=== PATIENT | male | born 1995 | race Caucasian/White ===

== ENCOUNTER 2016-09-23 18:00 | Inpatient (IN) | payer MEDICAID ==
[~2016-09-23] VITALS: Ht 185.4 cm; Wt 97.6 kg
--- NOTE | ~2016-09-23 | ECH ---
Transthoracic Echocardiography Report (TTE) Demographics Patient Name TONYA KIRAN Date of Study 09/26/2016 Patient Number [id number] Visit Number [id number] Date of 1995 Room Number 426 Accession Number [id number] Gender Male Age 21 year(s) Referring Nhi Garcia MD Auto Phone Installer Marsha Hill [facility] Physician Raul Richards MD Physician Interpreting Nhi Garcia [place] Upholsterer Physician Supervising Ordering Physician Raul Richards MD, MD/P Nurse Stress Relationship Mgr Conclusions Summary Technically adequate exam. The estimated left ventricular ejection fraction is 45-50%. The left ventricle is at upper limits of normal size . Mild to moderate left ventricular hypertrophy. Diastolic function indeterminate due to patient's arrhythmia. 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 The left atrium is severely dilated by LA volume index measurement. There is no evidence of patent foramen ovale or atrial septal defect by color Doppler. The right atrium is mildly dilated. Prominent Chiari network seen in the right atrium. Trivial posterior pericardial effusion. Procedure Type of Study TTE procedure:Echo Complete SF. Procedure Date Date: 09/26/2016 Start: 11:33 AM Technical Quality: Good visualization Indications:Tachycardia, Hypertension and Shortness of breath. Appropriate Use Criteria: 9 Height: 73 inches Weight: 228 pounds BSA: 2.28 m Rhythm: Sinus tachycardia HR: 109 bpm BP: 173/98 mmHg M-Mode/2D Measurements LV Diastolic Dimension: 5.85 cm LV Systolic Dimension: 4.56 cm LV Septum Diastolic: 1.2 cm LV PW Diastolic: 1.5 cm AO Root Dimension: 3.05 cm Cardiac Output: 7.57 l/min LA Dimension: 4.23 cm Cardiac Index: 3.32 l/min*m RV Diastolic Dimension: 3.26 cm LA volume index: 63 ml/m LVOT: 2.35 cm LVOT VTI: 16.02 cm RV Base: 4.18 cm LV Stroke volume: 69.45 ml RV Mid: 2.45 cm LV Stroke volume index: 30.46 ml/m RV Length: 8.22 cm Doppler Measurements AV Mean Gradient: 3.82 mmHg MV Peak E-Wave: 1.04 m/s LVOT Peak Velocity: 1.12 m/s AV Area (Continuity):4.07 cm PV Peak Velocity: 1.19 m/s PV Peak Gradient: 5.71 mmHg RA Area: 18.47 cm Findings Left Ventricle The left ventricle is at upper limits of normal size . Mild to moderate left ventricular hypertrophy. Diastolic function indeterminate due to patient's arrhythmia. 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 Right Ventricle Normal right ventricle structure and function. Left Atrium The left atrium is severely dilated by LA volume index measurement. There is no evidence of patent foramen ovale or atrial septal defect by color Doppler. Right Atrium The right atrium is mildly dilated. Prominent Chiari network seen in the right atrium. Mitral Valve Normal mitral valve structure and function. Redundant mitral valve chordae . Aortic Valve Normal aortic valve structure and function. Tricuspid Valve Normal tricuspid valve structure and function. Pulmonic Valve Normal pulmonic valve structure and function. Pericardial Effusion Trivial posterior pericardial effusion. Miscellaneous Visualized portions of the aortic root and ascending aorta appear normal in size. Pleural Effusion No evidence of pleural effusion. Contractility Score LV regional wall motion:(0-Non visualized 1-Normal 2-Hypokinesis 3-Akinesis 4-Dyskinesis 5-Aneurysm) Signature
--- NOTE | ~2016-09-23 | ECH ---
Transesophageal Echocardiography Report (ROSANNE) Demographics Patient Name TONYA KIRAN Date of Study 09/28/2016 Patient Number [id number] Visit Number [id number] Date of 1995 Room Number 426 Accession Number [id number] Gender Male Age 21 year(s) Referring Nhi Garcia MD Fitting Supervisor Marsha Hill [facility] Physician Raul Richards MD Physician Interpreting Nhi Garcia Pathology Transcriptionist Physician MD Supervising Ordering Physician Nhi Garcia MD/CRYSTAL [place] Nurse Pedrito Mendez Stress Movement Education Specialist The procedure was explained in detail to the patient. Risks, complications and alternative treatments were reviewed. Written consent was obtained. Conclusions Summary The estimated left ventricular ejection fraction is 55%. Normal aortic valve structure and function. 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 No aortic regurgitation noted. Small global pericardial effusion. Procedure Type of Study ROSANNE procedure:ROSANNE SF. Procedure Date Date: 09/28/2016 Start: 11:23 AM Technical Quality: Adequate visualization Additional Indications:evaluate aorta/possible VSD Appropriate Use Criteria: 9 Height: 72 inches Weight: 228 pounds BSA: 2.25 m Rhythm: Sinus tachycardia HR: 119 bpm BP: 158/96 mmHg Procedure Informed Consent Procedure consent form obtained. - See IV sedation record Findings Left Atrium There is no evidence of thrombus in the left atrium or the left atrial appendage. Mitral Valve Normal mitral valve structure and function. No mitral regurgitation by color Doppler. Aortic Valve Normal aortic valve structure and function. 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 No regurgitation noted. Tricuspid Valve Normal appearing tricuspid valve. No tricuspid regurgitation by color Doppler. Pulmonic Valve No evidence of SBE Pericardial Effusion Small global pericardial effusion. Miscellaneous No plaque seen in the thoracic aorta. Signature
--- NOTE | ~2016-09-23 | WND ---
ADMIT: 09/23/2016 RM/LOC: 426 [facility] MR#: [id number] [address] [address] MAGNO TONYA HART [address] [place] [address] Wound Care Clinic SEX: M AGE: 21 : 1995 DATE OF VISIT: 09/26/2016 TIME IN: 10:00. TIME OUT: 10:50. REASON FOR VISIT: Diagnosis of surgical wound to left groin. HISTORY OF PRESENT ILLNESS: Bjorn is a 21-year-old male, who is seen today per the request of Dr. Mckeon for possible wound VAC to a surgical site in the left groin. Bjorn was admitted to [facility] on September 23, 2016 with pneumonia. In addition, he had a wound in his left groin that he states has began 2 years ago. He thought it was an ingrown hair and was treated initially for infection. After resolution of that, the wound grew back and was the size of a softball. Bjorn was unemployed and uninsured, and his friend told him he thought that it was cancer and gave him a homeopathic black cream to apply to the lump. That black ointment made the skin necrose and all the underlying tissue was visible. He did report less pain after the wound opened up than it was 3 months ago when he began the ointment. PAST MEDICAL HISTORY: Denies chronic illnesses. CURRENT MEDICATIONS: At home, he is on no medications. He is on antibiotics here for his pneumonia and has recently been consulted. A consult has been placed for Dr. Castillo, Infectious Disease doctor to start antibiotics per the wound culture that was obtained during this visit in the hospital. ALLERGIES: No known medication allergies. FAMILY HISTORY: Noncontributory. REVIEW OF SYSTEMS: Bjorn did report fever and chills prior to admission. He states today is the first day that he thinks he is feeling better. He denies nausea; however, he reports that he had an emesis last night. He is coughing up yellow sputum. Moderate amount. He does report some shortness of breath. He denies any complaints of pain to the wound bed currently. SOCIAL HISTORY: Bjorn is 21 years old and does not have his own home, but describes bouncing from couch to couch. He is currently unemployed and has no form of insurance or income. Bjorn grew up with 12 siblings. He was home schooled. He did not graduate from high school. His parents milk cows for living, and according to Bjorn, they do not have insurance either. PHYSICAL EXAMINATION: VITAL SIGNS: Blood pressure 173/98, pulse ox 91%, pulse 108, temperature 98.1, and respirations 19. GENERAL: An alert and oriented 21-year-old, who is examined in his bed in his room in [facility]. EXTREMITIES: Assessment of his left groin area reveals a gauze dressing that is saturated with serosanguineous exudate. Upon removal, it is noted that the wound bed measures 5 cm in length x 8.8 cm in width, 6 cm long x 10 cm wide x ADMIT: 09/23/2016 RM/LOC: [address] [place] [address] MR#: [id number] [address] [place] [id number] TONYA KIRAN [address] [place] [address] [facility] Care Clinic SEX: M AGE: 21 : 1995 5 cm deep measured at 1 o'clock. Wound bed is 100%. [place] freshly debrided tissue. No periwound erythema is noted. No odor is noted. ASSESSMENT: Status post debridement of necrotizing soft tissue infection of the left groin of Wound that measured 10 cm in width x 6 cm in length x 5 cm in depth. PLAN: We will continue to use saline moistened gauze lightly packed into the wound bed and then an ABD cover dressing change twice daily. I have had Bjorn write the letter stating that he has no job, no income, and no insurance applying for prasanna wound VAC. We will place the order for the wound VAC, and follow up when approval is met. Bjorn is amenable to plan of care. Judi Suero APRN/ [place] JOB #: [id number] CC: Alejo Carter, Attending Physician Alejo Carter, Family Physician
--- NOTE | 2016-09-25 20:44 | OR ---
ADMIT: 09/23/2016 RM/LOC: 426 [facility] MR#: [id number] [facility] [id number] [address] [address] TONYA KIRAN [address] [place] [id number] Operative/Delivery Room Report SEX: M AGE: 21 : 1995 SURGERY DATE: 09/24/2016 SURGEON: Caesar Mckeon MD PREOPERATIVE DIAGNOSIS: Necrotizing soft tissue infection of the left groin. POSTOPERATIVE DIAGNOSIS: Necrotizing soft tissue infection of the left groin. PROCEDURE: Debridement of necrotizing soft tissue infection of the left groin of wound measuring 10 cm x 6 cm x 5 cm deep. ANESTHESIA: General endotracheal. ESTIMATED BLOOD LOSS: 50 mL. DESCRIPTION OF PROCEDURE: The patient was taken to the operating room and placed supine on the operating room table. General anesthesia was established. The left groin was prepped and draped in the standard surgical fashion. The necrotic tissue around all margins of the wound including an area medially up to the base of the scrotum was debrided sharply. The necrotic tissue was sent for tissue culture. The remaining viable tissue was also biopsied with sharp excision of portions of what appeared to be lymph node extending down into the femoral canal. The wound was then Pulsavac irrigated with saline until no residual infection was found. All margins were viable upon completion. The bridge of tissue between the wounds was debrided to allow dressing placement into a one large wound. This was then packed with Betadine-soaked Kerlix. Local anesthetic was injected at the margins of the wound and a dressing was placed. Sponge, needle, and instrument counts were correct at the end of the case. The patient tolerated the procedure well and transferred to the recovery area in stable condition. Caesar Mckeon MD/ kimberley JOB #: [id number] CC: Alejo Carter, Attending Physician Alejo Carter, Family Physician
--- NOTE | 2016-09-25 20:44 | CO ---
ADMIT: 09/23/2016 RM/LOC: 426 [facility] MR#: [id number] [address] [facility] [address] [place] [id number] EDUARDO KIRAN [address] [place] [address] Consultation SEX: M AGE: 21 : 1995 DATE OF CONSULTATION: 09/24/2016 ATTENDING PHYSICIAN: lAejo Carter CONSULTING PHYSICIAN: Caesar Mckeon MD HISTORY: This is a 21-year-old male seen in surgical consultation for Dr. Carter with complaints of a left groin wound. Eduardo also has a pneumonia and is admitted with 1-week history of cough, shortness of breath, and fever. He describes 2 years ago having first noticed what he thought was an ingrown hair in his left groin. That was treated initially as infection. He had resolution of that, but then return of similar lump in the groin over the ensuing months. He was seen clinically by another physician, but no additional workup or biopsy or treatment was undertaken because he did not have insurance and elected to try homeopathic methods. Most recently, about 3 months ago, he tried a topical black ointment of some fashion. The wound since then has erupted and the skin overlying this exposing all underlying tissue. He actually reports that it looks better and feels better than it has for a couple of months now. PAST MEDICAL HISTORY: Denies chronic illnesses. CURRENT MEDICATIONS: At home none. ALLERGIES: NO KNOWN MEDICAL ALLERGIES. FAMILY HISTORY: Noncontributory. REVIEW OF SYSTEMS: A 10-point review of systems performed. He does describe cough, fever, shortness of breath, and the left groin wound as described above. The remainder of the 10-point review of systems is negative for recent change. PHYSICAL EXAMINATION: GENERAL: Eduardo is alert, oriented, and in no acute distress. VITAL SIGNS: Temp is 99 degrees. His vital signs are stable, but he has been tachycardic in the one teens. HEENT: Sclerae are anicteric. NECK: Supple, without lymphadenopathy. Trachea is midline. LUNGS: Clear with the exception of bilateral basilar rales. HEART: Regular rate and rhythm. ABDOMEN: Soft, nontender. ADMIT: 09/23/2016 RM/LOC: 426 [facility] MR#: [id number] [address] [address] EDUARDO KIRAN [address] [place] [address] Consultation SEX: M AGE: 21 : 1995 EXTREMITIES: Neurovascularly intact. There was a large necrotic wound in the left groin with exposed underlying subcutaneous tissue down to the fascia of the thigh musculature and adductor musculature. There is residual necrotic tissue surrounding this. Calves are otherwise soft bilaterally. 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 PLAN: I have recommended debridement of the wound in the operating room for tissue culture, pathology, and initiation of wound care. I discussed the risks of that with Eduardo and he does wish to proceed. We will have geriatric social worker see him to try to help with financial means for his health care. Caesar Mckeon MD/ [place] JOB #: [id number] CC: Alejo Carter, Attending Physician Alejo Carter, Family Physician
--- NOTE | 2016-09-27 19:09 | ER ---
ADMIT: 09/23/2016 RM/LOC: 426 [facility] MR#: [id number] [address] [address] TONYA KIRAN [address] [place] [address] Emergency Room Report SEX: M AGE: 21 : 1995 DATE: 09/23/2016 ADDENDUM: The patient has been signed out to me by Dr. Veronica. Please refer to Dr. Veronica's note for the complete history and physical exam. HISTORY OF PRESENT ILLNESS: The patient is a 21-year-old male, came to the ER with chief complaint of shortness of breath and cough and fever. PHYSICAL EXAMINATION: VITAL SIGNS: The patient is tachypneic in 26 respiratory rate, temperature is close to 101, the patient is tachycardic in 135, and blood pressure systolic is in 170s. HEAD and NECK: Noncontributory. CHEST: There are crackles in the lower posterior lobes bilaterally. HEART: The patient also has some systolic murmur, with questionable gallops. ABDOMEN: Soft. In the left inguinal area, there is about 3 inch x 2 inch area, wound which eroded all the skin, subcutaneous, and going through the muscle and is full of pus and malodorous. The patient states he has a bump, mass in the area, and he used black salve, home remedy per patient, since with topical over it, and it did not work and the wound was eroded per patient. EMERGENCY DEPARTMENT COURSE: The patient was started on sepsis workup, and received IV fluids. CBC showed WBC of 13.4, with left shift with neutrophil of 11.2, lactic acid is 1.2. CMP had potassium of 3.3, for which the patient received 40 mEq of K-Dur p.o. Sodium was 140, carbon dioxide was 26, creatinine was 0.8, and also the patient has procalcitonin of 0.35. The blood culture was sent. Urine showed 2 wbc and [address] of abdomen and pelvis showed small free fluid in the pelvic without any solid organ injury. CT also showed large area of soft tissue swelling, inflammation involving the left lower quadrant and left upper medial thigh with a large soft tissue defect along with an underlying soft tissue density, which may represent inflammatory changes. I did not see any discrete, well defined drainable abscesses. The patient also has some splenomegaly in the CT scan too. The patient was started on vancomycin and Zosyn for pneumonia, sepsis, left inguinal lesion. General Surgery, Dr. Mckeon was contacted and they put the patient on the list to take a look at the case. Family Medicine was contacted, and the patient was admitted for further followups and treatments of bilateral pneumonia, sepsis, left inguinal lesion. Rolly Pisano MD/ k[place] JOB #: [id number] CC: Alejo Carter MD, Attending Physician Alejo Carter MD, Family Physician
[2016-10-02] MEDS ORDERED: ZESTRIL DPS5 MG PO (16:28)
[2016-10-02] MEDS ORDERED: NORVASC DPS10 MG PO (16:28)
[2016-10-02] MEDS ORDERED: COREG DPS6.25 MG PO (16:28)
[2016-10-02] MEDS ORDERED: HYZAAR 100-251 EACH PO (16:28)
[2016-10-02] MEDS ORDERED: ZYLOPRIM-DPS100 MG PO (16:29)
[2016-10-02] MEDS ORDERED: TESSALON PERLE100 M1 PO (16:29)
[2016-10-02] MEDS ORDERED: TYLENOL DPS325 MG PO (16:29)
[2016-10-02] MEDS ORDERED: ZOSYN 3.3753.375 GM IV (16:30)
[2016-10-02] MEDS ORDERED: VANCOCIN-DPS1 GM IV (16:30)
--- NOTE | 2016-10-07 11:56 | CO ---
ADMIT: 09/23/2016 RM/LOC: 426 [facility] MR#: [id number] 2620 [facility] [address] [place] [id number] EDUARDO KIRAN [address] [place] [address] Consultation SEX: M AGE: 21 : 1995 DATE OF CONSULTATION: 09/27/2016 ATTENDING PHYSICIAN: Alejo Carter CONSULTING PHYSICIAN: Shelly Hankins MD REASON FOR CONSULT: Abnormal echocardiogram. This is Josie Lawrence RN, scribing for Dr. Jose Hankins. HISTORY OF PRESENT ILLNESS: Bjorn is a pleasant 21-year-old gentleman, I have been asked to see in Cardiology consultation by Dr. Carter for abnormal echocardiogram. He was admitted with left groin wound that started as a large tender lump, however this ended up requiring irrigation and debridement and wound VAC at this point. He now has significant cough and has positive adenovirus. Echocardiogram was performed and this demonstrated ejection fraction decreased at 45% to 50% with mild to moderate left ventricular hypertrophy and small fbwl-ef-wgvcf ventricle septal defect. He also has severe left atrial enlargement. Doppler was negative for PFO or ASD. He has no prior history of cardiac congenital abnormalities and no history of coronary disease. He does report that he has family history of stroke in grandparent, but no coronary family history. He takes no medications at home. Prior to admission, he was having some increased shortness of breath for about few weeks that he associated with his respiratory virus. He also had some pounding in his heart periodically. Currently, he denies any chest pain, palpitations, presyncope, peripheral edema, or orthopnea, but does continue to have shortness of breath and has frequent coughing. He is currently afebrile, but he did have fever prior to admission and is on antibiotics. PAST MEDICAL HISTORY: No chronic illnesses. ALLERGIES: NO KNOWN MEDICATION ALLERGIES. MEDICATIONS: He takes no home medications. Currently, he is on; 1. Hyzaar 100/25 one p.o. daily. 2. Norvasc 10 p.o. daily for hypertension in hospital. 3. DuoNeb inhalation q.4 hours. 4. Vancomycin 1.75 g IV q.8 hours. 5. Zosyn 3.375 g IV 8 hours. FAMILY HISTORY: Positive family history of diabetes in multiple family members. Positive family history of cancer in maternal grandfather with skin cancer. Positive family history of stroke in paternal grandmother. SOCIAL HISTORY: Eduardo a single. He denies any caffeine use or drug use. He has rare and infrequent tobacco use. REVIEW OF SYSTEMS: GENERAL: Recent fever. Denies any increased fatigue or weight changes currently. ADMIT: 09/23/2016 RM/LOC: 426 [facility] MR#: [id number] [address] [address] EDUARDO KIRAN [address] [place] [address] Consultation SEX: M AGE: 21 : 1995 EYES: Denies double vision, blurred vision, cataracts, or glaucoma. THROAT, MOUTH, AND EARS: Some sinus drainage and sore throat. Denies hearing loss. PULMONARY: Denies cough, sputum production, asthma, emphysema or bronchitis. Denies snoring loudly, wakefulness at night, or fatigue upon awakening. GASTROINTESTINAL: Denies heartburn or difficulty swallowing. No change in bowel habits. Denies dark or bloody stools. No history of ulcers, hiatal hernia, or gallbladder or liver disease. GENITOURINARY: Denies dysuria, hematuria, nocturia, urinary tract infection, or kidney stones. Denies history of renal insufficiency or failure. MUSCULOSKELETAL: Denies history of arthritis or gout. Denies muscle or joint pains. ENDOCRINE: Denies history of thyroid dysfunction or diabetes. HEMATOLOGIC: Denies history of anemia, easy bruising, or cancer. NEUROLOGIC: Denies chronic headaches, dizziness, syncope, stroke, seizures or numbness or tingling. PSYCHIATRIC: Denies history of mental illness or feelings of depression. PHYSICAL EXAMINATION: VITAL SIGNS: Blood pressure 161/95, heart rate 110, respirations 16, temperature 97.9, oxygenation 98% on room air. SKIN: [place], warm and dry. EYES: Sclerae clear. No xanthelasmas. ENT: Oral mucosa is pink and moist. No jugular venous distention or carotid bruits. CHEST: Respirations are even and unlabored. Lungs are clear to auscultation. HEART: Regular rate and rhythm. Normal S1, S2. No murmurs, rubs or gallops. ABDOMEN: Soft and nontender. MUSCULOSKELETAL: Gait is normal. EXTREMITIES: Peripheral pulses palpable. No clubbing, cyanosis or edema. PSYCHIATRIC: Alert and oriented. Mood and affect are appropriate. DIAGNOSTIC DATA: Echo on 09/26/2016, showed ejection fraction of 45% to 50%, utuv-sa-zlvqhwap LVH, small wgcv-xb-hsniu VSD, severe left atrial enlargement. Negative PFO/ASD by Doppler. Sodium 141, potassium 3.3, BUN 7, creatinine 1.0, glucose 86, magnesium 2.1. White blood cell count 8.7, hemoglobin 13.0, hematocrit 38.7, and platelets 285. ASSESSMENT AND PLAN: 1. Cardiomyopathy. 2. Questionable ventricular septal defect. 3. Leg wound. 4. Tachycardia. 5. Cough. I recommend a transesophageal echocardiogram to further evaluate for possible ventricular septal defect. I discussed with him the procedure with risks and benefits with risks including, but not limited to, hypoxia, aspiration, ADMIT: 09/23/2016 RM/LOC: 426 [facility] MR#: [id number] 2620 [facility] [address] [place] [phone] EDUARDO KIRAN [address] [place] [address] Consultation SEX: M AGE: 21 : 1995 reaction to anesthetic, possible esophageal perforation. He states understanding and is willing to proceed. I will plan this for tomorrow and will keep him n.p.o. after midnight. If his cough is still an issue, we may do as an outpatient. I suspect his cardiomyopathy is secondary to his high heart rate and current illness. I will start him on Coreg 3.125 p.o. b.i.d., in addition to ADI inhibitor, lisinopril 5 p.o. daily. Thank you for the consultation. I have read and agree with the documentation that has been completed regarding this visit. By signing this record, I attest that the documentation was completed in my physical presence and is an accurate record of the encounter. Josie Lawrence RN / Shelly Hankins MD / kimberley JOB #: [id number] CC: Alejo Carter, Attending Physician Alejo Carter, Family Physician
--- NOTE | 2016-10-07 15:30 | CO ---
ADMIT: 09/23/2016 RM/LOC: 426 [facility] MR#: [id number] [address] [facility] [address] [place] [phone] TONYA KIRAN [address] [place] [address] Consultation SEX: M AGE: 21 : 1995 DATE OF CONSULTATION: 09/26/2016 ATTENDING PHYSICIAN: Alejo Carter CONSULTING PHYSICIAN: Cristel Castillo MD REASON FOR CONSULT: Antibiotic management. Thank you, Dr. Carter, for the consult and involving me in this patient's care. HISTORY OF PRESENT ILLNESS: Mr. Kiran is a 21-year-old man, who presented to [facility] with 1-week history of worsening cough, fever, and chills. He also was noted to have left groin large nonhealing wound, which he thought was likely cancer. He did not seek any medical care due to lack of resources and insurance. Per the notes, the left groin had foul-smelling necrotic wound and he was evaluated by Dr. Mckeon. He was taken to the OR and underwent debridement of necrotizing left groin large nonhealing wound on September 24, 2016. CT scan also showed bilateral basilar pneumonia. Respiratory viral panel was done, which was positive for Rhinovirus. He is persistently tachycardic and also is requiring 2 L of oxygen to maintain his oxygen saturation. He was started on vancomycin, Zosyn, and levofloxacin. His blood cultures have been negative to date. PAST MEDICAL HISTORY: Denies any health issues. ALLERGIES: NO KNOWN DRUG ALLERGIES. CURRENT MEDICATIONS: Include Hyzaar, DuoNeb, Levaquin 750 mg once daily, vancomycin 1.75 g twice daily, and Zosyn 3.375 g every 8 hours. SOCIAL HISTORY: He smokes cigarettes everyday. Per the patient, he does binge drinking on weekends mainly beer. He did do IV drug use in the past. He has also been sexually active with multiple female partners. FAMILY HISTORY: Significant for diabetes in his grandfather. REVIEW OF SYSTEMS: A 10-point review of systems negative except as mentioned in the HPI. PHYSICAL EXAMINATION: VITAL SIGNS: Current temperature 98.1, T-max 100, heart rate 108, respirations 19, blood pressure 173/98, and 91% on 2 L. GENERAL: No acute distress. HEENT: Head is normocephalic and atraumatic. Extraocular movements intact. CHEST: Decreased breath sounds bilaterally. No wheezes, rales, or rhonchi. CARDIOVASCULAR: S1 and S2 heard. Tachycardia. ABDOMEN: Soft, nontender, and nondistended. Active bowel sounds. SKIN: There is left groin wound currently packed. There is significant surrounding induration. Ptfj-gd-dtfuuojz serosanguineous drainage. PSYCH: Normal affect. Memory intact. ADMIT: 09/23/2016 RM/LOC: 426 [facility] MR#: [id number] [address] [place] [phone] TONYA KIRAN [address] [place], [place] [id number] Consultation SEX: M AGE: 21 : 1995 DATA REVIEW: Per HPI. ASSESSMENT: 1. Community-acquired pneumonia. 2. Tachycardia/hypoxia, questionable pulmonary embolus. 3. Left groin necrotizing soft tissue infection status post incision and drainage. 4. History of intravenous drug use. 5. Splenomegaly. Cultures from left groin are pending and the prelim cultures are growing multiple gram-positive organisms and gram-negative anaerobes. At this time, we will continue vancomycin and Zosyn and I will stop the Levaquin for now. I will narrow antibiotics once culture is finalized. Given his persistent tachycardia and hypoxemia, I will check CTA chest to rule out pulmonary embolus. I will also check TSH. Given his high risk behaviors, I would like to check HIV test, hepatitis C antibody, and hepatitis B surface antigen. Thank you for the consult and I will continue to follow the patient. Cristel Castillo MD/ kimberley JOB #: [id number] CC: Alejo Carter, Attending Physician Alejo Carter, Family Physician
--- NOTE | 2016-10-10 08:30 | HP ---
ADMIT: 09/23/2016 RM/LOC: 426 [facility] MR#: [id number] [address] [address] TONYA KIRAN [address] [place] [address] History and Physical SEX: M AGE: 21 : 1995 DATE OF SERVICE: 09/24/2016 CHIEF COMPLAINT: Cough and fever. HISTORY OF PRESENT ILLNESS: Cornelius is a 21-year-old, white male, who presented to the [facility] Emergency Department with a 1-week history of worsening cough, fevers, chills, and inability to sleep due to this cough. He notes his temps were getting in upwards of 105 at home. Incidentally, he notes that he has had a large nonhealing wound in his left inguinal region for the last 3 months. He states he did not seek care for either of these problems due to lack of resources and lack of insurance and could not afford any bills that would be incurred as a result of treatment. Workup in the ER showed bilateral lower lobe pneumonia on chest CT and a large necrotic foul- smelling wound in his left inguinal region. He was subsequently been admitted to the hospital for IV antibiotics and a surgical consult. PAST MEDICAL HISTORY: He is otherwise healthy. He has no chronic medical problems. MEDICATIONS: No outpatient medications. ALLERGIES: NONE. SOCIAL HISTORY: He admits to smoking 2 to 3 cigarettes per week. He admits to occasional alcohol use. No recreational drug use. He is currently unemployed due to the wound in his left inguinal region. FAMILY HISTORY: Noncontributory. REVIEW OF SYSTEMS: As per HPI. All others reviewed were negative. PHYSICAL EXAMINATION: VITAL SIGNS: The blood pressure is 156/87, pulse 117, respirations 17, temp 99.4, and O2 saturation is 93% on room air. GENERAL: He is awake, alert, no acute distress, comfortable in hospital bed, but he is coughing quite a bit. HEENT: Normocephalic, atraumatic. NECK: Supple. No lymphadenopathy. HEART: Tachycardic. Regular. No murmurs, gallops, or rubs. LUNGS: Coarse breath sounds at the bilateral bases. ABDOMEN: Soft, nontender, nondistended. No rebound, guarding, or masses. SKIN: He has a large necrotic deep wound in his left inguinal region with a foul smell. EXTREMITIES: No cyanosis, clubbing, or edema. LABORATORY AND X-RAY DATA: Procalcitonin through the ER was 0.35, lactic acid was 1.2. CBC on admission showed a white count of 13.4, hemoglobin 14, and a platelet of 248. Since admission, the white count has come down to 11.9, hemoglobin 12.9, and platelet 224. BMP this morning shows a potassium at 3.5, remainder of it is without clinically significant abnormalities. Blood ADMIT: 09/23/2016 RM/LOC: 426 [facility] MR#: [id number] [address] [place] [phone] TONYA KIRAN [address] [place] [address] History and Physical SEX: M AGE: 21 : 1995 cultures are negative x2, to date. UA with micro shows 4+ protein, 1+ ketones, 2+ blood. Chest x-ray done through the Emergency Department showed borderline cardiomegaly, but otherwise no acute findings. CT of his abdomen and pelvis showed a large area of soft tissue abnormality in the left lower quadrant and left upper thigh with a large soft tissue defect along the underlying soft tissues and in the left inguinal region with some reactive lymphadenopathy. He also had splenomegaly and bilateral lower lobe pneumonia on the CT. ASSESSMENT: 1. Bilateral community-acquired pneumonia. 2. Large necrotic left inguinal wound. 3. Hypertension. 4. Sepsis. 5. Tobacco abuse. 6. Lack of resources. PLAN: Plan at this time will be to continue the vancomycin, Levaquin, and Zosyn, which were initiated on admission for antibiotic coverage. This should cover both the wound and his pneumonia. He was advised to quit smoking. I have asked Dr. Mckeon, a General Surgery, to consult for the wound. He has been placed on DuoNebs. I would like to see what his heart rate and his blood pressures do with the antibiotics and possible surgical debridement of this wound, although I suspect he may need to be on some medicine for his blood pressure. I will make that decision here in the next 48-72 hours. I will also ask Social Work to consult with his lack of resources, so that we can get him tied in with them. Alejo Carter MD/ kimberley JOB #: [id number] CC: Alejo Carter, Attending Physician Alejo Carter, Family Physician
--- NOTE | 2016-10-10 08:30 | DS ---
ADMIT: 09/23/2016 RM/LOC: 426 [facility] MR#: [id number] [address] [address] EDUARDO KIRAN [address] [place] [address] Discharge Summary SEX: M AGE: 21 : 1995 ADMISSION DATE: 09/23/2016 DISCHARGE DATE: 10/01/2016 ADMITTING DIAGNOSES: 1. Bilateral community-acquired pneumonia. 2. Large necrotic left inguinal wound. 3. Hypertension. 4. Sepsis. 5. Tobacco abuse. 6. Lack of resources. DISCHARGE DIAGNOSES: 1. Bilateral community-acquired pneumonia. 2. Adenovirus positive. 3. Non-Hodgkin's lymphoma. 4. Large left inguinal wound, positive for Pseudomonas, status post debridement. 5. Hypertension. 6. Sepsis, resolved. 7. 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 8. History of IV (intravenous) drug use. 9. History of high-risk sexual behavior. 10.Tobacco abuse. 11.Lack of resources. CONSULTATIONS: 1. Caesar Mckeon MD, General Surgery, consulted 09/24/2016 for large left inguinal wound. 2. Cristel Castillo MD, Infectious Disease, consulted 09/26/2016 for IV antibiotic choice and duration. 3. Tanna Hankins MD, [facility], consulted on September 27, 2016, for an abnormal echocardiogram. PROCEDURES: 1. Debridement of necrotizing soft tissue infection of the left groin performed by Dr. Mckeon on 09/24/2016. 2. Transthoracic echocardiogram on 09/26/2016 showing an LVEF of 45-50%, mild to moderate LVH, diastolic dysfunction, small fphl-bu-fzcvp membranous VSD with ventricular septal aneurysm, dilated left atrium. 3. Transesophageal echocardiogram performed on 09/28/2016 showing a left ventricular ejection fraction of 55%, normal aortic valve structure and function, a possible aneurysm of the right coronary cusp, consider possible abscess. 4. Bone marrow biopsy performed by Dickson Longo MD with Interventional Radiology on 09/30/2016. HISTORY AND PHYSICAL EXAMINATION: Cornelius is a pleasant 21-year-old, white male, [place] patient who normally resides in [place] who presented to the [facility] Emergency Department in the evening hours of 09/23/2016 ADMIT: 09/23/2016 RM/LOC: 426 [facility] MR#: [id number] [address] [address] EDUARDO KIRANIG [address] [address] [address] Discharge Summary SEX: M AGE: 21 : 1995 with a 1-week history of worsening cough, fevers, chills and inability to sleep due to his cough. He was having temps as high as 105 at home. Incidentally, he noted a large, nonhealing wound in his left inguinal region, which had been present for approximately 3 months. Over the course of his hospital stay, he notes that there had been previous concerns about a possible malignancy, but he had been lost to followup due to lack of resources. Workup in the ER showed a bilateral pneumonia on chest CT, and exam showed a large necrotic, foul-smelling wound in his left inguinal region. He was subsequently admitted to the hospital for IV antibiotics and surgical consult. On his initial exam, his blood pressure was 156/87, pulse was 117, temp was 99.4. There was no evidence of hypoxemia. He had mildly coarse breath sounds and a large foul-smelling, necrotic, black wound in the left inguinal region. CBC was elevated at 13. Blood cultures remained negative throughout his hospital stay. HOSPITAL COURSE: Again, Eduardo was admitted to the PCU floor with a presumptive diagnosis of sepsis with bilateral pneumonias and his wound. A viral respiratory panel was ordered and did come back positive for adenovirus. He was started on Levaquin and Zosyn for empiric antibiotic treatment, and Dr. Mckeon with General Surgery was consulted for the left inguinal wound. Dr. Mckeon saw the patient, took him down to the operating room for debridement of this wound and for tissue culture and biopsy pathology on 09/24/2016. After several days, the pathology came back positive for non-Hodgkin's lymphoma and cultures were positive for Pseudomonas. Dr. Castillo with Infectious Disease was consulted to help refine our antibiotic therapy for him. Dr. Gaines with Hematology/Oncology was consulted and recommended a bone marrow biopsy, which Cornelius underwent on 09/30/2016. In addition to concerns about possible malignancy in the left groin, Cornelius relayed that there had been some concerns that he may have endocarditis and subsequently a transthoracic echocardiogram was ordered. Findings are outlined up in the procedures section. Dr. Hankins with [facility] was consulted after the abnormal transthoracic echocardiogram, and a transesophageal echocardiogram was also performed showing a possible aortic cusp abscess. Cornelius essentially remained afebrile throughout his hospital stay and did not require any oxygen. His wound initially had a wound VAC placed, but once the tissue culture came back positive for malignancy, the wound VAC was removed and wet-to-dry dressings were instituted. Wound Care followed throughout the hospital stay. Social Work was also consulted to help get Cornelius tied in with whatever resources he needed. Ultimately by 10/01/2016 a decision was made to discharge him to home, though he will have multiple followups here in the ensuing 2-3 weeks. DISPOSITION: He will be discharged to home. His discharge medications will include: 1. Carvedilol 6.25 mg twice daily. ADMIT: 09/23/2016 RM/LOC: 426 [facility] MR#: [id number] [address] [place] [address] EDUARDO KIRAN [address] [place] [address] Discharge Summary SEX: M AGE: 21 : 1995 2. Hyzaar 100/25, one tab daily. 3. Amlodipine 10 mg daily. 4. Lisinopril 5 mg daily. 5. Allopurinol 100 mg daily. 6. Tessalon Perles 100 mg 1-2 tabs t.i.d. as needed. 7. Tylenol 650 mg every 4 hours as needed. 8. Zosyn 3.375 g every 8 hours. 9. Vancomycin 2 g every 12 hours. He does have a midline placed in the right arm for the IV antibiotic infusion. Should Cornelius's cardiac MRI come back negative for abscess, his IV antibiotics will be discontinued and he will be switched over to Levaquin 750 mg daily for two weeks and Flagyl 500 mg t.i.d. for two weeks. Please see his followups. FOLLOWUP: Cornelius is follow up with Dr. Frazier with the [facility] early next week. He is to follow up with Dr. Hankins in 2 weeks. A cardiac MRI in [place] has been ordered for October 07 at 12:30 to 1:00. He is to follow up with Dr. Castillo in 2 weeks, October 24 at 1:30. He is to follow up with Dr. Mckeon in 2 weeks in [place] for his wound care. He is to follow up with his primary care doctor, Dr. Carrera, in [place] MondayOctober 03 at 2 p.m. I have also asked that he be followed by the wound care providers at the [facility]. He is to follow up with Dr. Gaines with Hematology/Oncology in 2-3 weeks with a CBC with diff, CMP, LDH prior to the appointment. He will have [facility] work with him on the IV antibiotics. Alejo Carter MD/ cuauhtemoc JOB #: [id number] CC: Alejo Carter MD, Attending Physician Alejo Carter MD, Family Physician
[2016-10-20] MEDS ORDERED: TYLENOL DPS325 MG PO (19:08)
[2016-10-20] MEDS ORDERED: COREG DPS6.25 MG PO (19:08)
[2016-10-20] MEDS ORDERED: ASCORBIC ACID500 MG PO (19:09)
[2016-10-20] MEDS ORDERED: NORVASC5 MG PO (19:09)
[2016-10-20] MEDS ORDERED: PEPCID DPS20 MG PO (19:09)
[2016-10-20] MEDS ORDERED: VIBRAMYCIN-DPS100 M2 PO (19:10)
[2016-10-20] MEDS ORDERED: CIPRO DPS500 MG PO (19:14)
[2016-10-20] MEDS ORDERED: LOVENOX DP30 MG/0.3 SQ (19:16)
--- NOTE | 2016-10-21 10:58 | CO ---
ADMIT: 09/23/2016 RM/LOC: 426 [id number] [id number] [address] [address] TONYA KIRAN [address] [place] [address] Consultation SEX: M AGE: 21 : 1995 DATE OF CONSULTATION: 09/28/2016 ATTENDING PHYSICIAN: Alejo Carter MD CONSULTING PHYSICIAN: Chrystal Gaines MD REASON FOR ONCOLOGY CONSULTATION: Non-Hodgkin lymphoma, high grade on final pathology. HISTORY OF PRESENT ILLNESS: Mr. Kiran is a 21-year-old young gentleman, who is from [place], was admitted to the hospital due to the left inguinal abscess. Debridement was done of the abscess, and the final pathology was non- Hodgkin lymphoma, high grade. The final pathology is sent to [facility] for further evaluation. As per the patient, he has noticed a left inguinal lymph node for about 6 to 7 months ago, where 1 lymph node which disappeared itself, and then 3 months later, the lymph node reappeared. When he talked to his friend, his friend told him it could be cancer. He is more into natural medications. His friend gave him black salves to apply on that area. He applied that. It got necrotic. He removed the top of the part of the lymph node. It never held. It was very healy, pussy, and therefore, he got infection and fever. Therefore, he was brought to the hospital for further evaluation and management. He and his family are more on natural medications. He never had gotten child immunizations in the past as well. No other complaints. No weight loss. No night sweats. No fever. PAST MEDICAL HISTORY: None. ALLERGIES: NO KNOWN DRUG ALLERGIES. SOCIAL HISTORY: Not a smoker. Not a drinker. He does not use any illicit drug use. FAMILY HISTORY: Significant for diabetes and high blood pressure in the family. MEDICATIONS: He is on antibiotics with Zosyn and Levaquin. Please review the medication list for complete list. REVIEW OF SYSTEMS: GENERAL: Not in acute distress. RESPIRATORY: No shortness of breath. CARDIOVASCULAR: No chest pain. GASTROINTESTINAL: No nausea. No vomiting. No diarrhea. GENITOURINARY: No urgency. No frequency. ENDOCRINOLOGY: No polyuria. No polydipsia. NUTRITION: Adequate. INFECTION: Mild fever on and off, but currently afebrile. SKIN: No rash. NEUROLOGIC: Awake, alert, oriented. No confusion. No disorientation. ADMIT: 09/23/2016 RM/LOC: 426 [facility] MR#: [id number] [address] [address] TONYA KIRAN [address] [place] [address] Consultation SEX: M AGE: 21 : 1995 PHYSICAL EXAMINATION: VITAL SIGNS: Temperature 98.9, pulse 113, respirations 18, and blood pressure 151/106. HEENT: Normocephalic and atraumatic. LUNGS: Clear. HEART: S1 and S2 heard. Regular rate and rhythm. ABDOMEN: Soft, nontender, nondistended. Positive bowel sounds. EXTREMITIES: No edema. LYMPHATICS: There is abnormal lymph node in the left inguinal region, where it is pussy because of the destruction of the tissues. There is also some debridement in that area. I have seen the pictures that was shown by him and his sister. There is a dressing in place right now. NEUROLOGY: Awake, alert, and oriented x3. No focal neurological deficit. LABORATORY DATA: On his labs, WBC 11.5, hemoglobin 12.9, platelets 346. Normal kidney and normal LFTs. IMAGING: CT scan finding; CT scan shows some lymphadenopathy in his mediastinal area as well as retroperitoneal lymph nodes, where there is a big mass in his left inguinal region around 8 to 10 cm. I have also reviewed all the other scans as well. IMPRESSION AND RECOMMENDATIONS: Mr. Kiran is a 21-year-old gentleman with a right inguinal lymph node biopsy that shows non-Hodgkin lymphoma, high grade. The pathology was sent to [facility] for further confirmation. Non-Hodgkin lymphoma, high grade. At this point of time, we do not know if it is B cells or T cells. The pathology sample has been sent to [facility] for further confirmation. We will probably have the results by next week. I will also talk with the pathologist at the center. We will get Ki-67 in the path. We will also check his LDH, uric acid, and ferritin. I will start allopurinol 100 mg once a day for now and discontinue if his uric acid is normal. I will also get bone marrow biopsy tomorrow by IR, and we will check flow cytometry, FISH, cytogenetics, and core biopsy. I have answered all the questions and concerns of his and his sister. I have also talked to them to determine if this is non-Hodgkin lymphoma. We had a very long discussion because the patient and his sister are more into holistic and natural medications and does not want to take more chemotherapy. I told the patient that if it is non-Hodgkin lymphoma, he has chances of cure, he is young, and he needs to be very careful to make a decision; otherwise, this may succumb his life. I have also told him that if he starts to get chemotherapy, then he ADMIT: 09/23/2016 RM/LOC: 426 [facility] MR#: [id number] [address] [place] [address] [place] [address] TONYA KIRAN [address] [place] [address] Consultation SEX: M AGE: 21 : 1995 needs to consider about the fertility preserving because of the young age and getting chemotherapy. In anyway, if he is discharged, we will follow up him as an outpatient. I will see him again tomorrow. I will also discuss this case with our [facility] for further management and plan. I have spent 80 minutes of my time to discuss with the patient and 50% of the time was spent in discussion with the patient and his sister talking about the prognosis, further workup, and the treatment plan. Thank you so much for your consultation and the opportunity in taking care of your patient. Chrystal Gaines MD/ kimberley JOB #: [id number] CC: Alejo Carter MD, Attending Physician Alejo Carter MD, Family Physician
== END 2016-10-01 12:20 | disposition home health service (06) | DRG 853 ==
LOC: ER 18:00 → 4PCU 20:59
PROVIDERS: ADMIT Family Medicine
PROC: 07BJ0ZX Excision of Left Inguinal Lymphatic, Open Approach, Diagnostic (ICD-10-PCS; principal; 2016-09-24)
PROC: 0JBC0ZZ Excision of Pelvic Region Subcutaneous Tissue and Fascia, Open Approach (ICD-10-PCS; principal; 2016-09-24)
PROC: B24BZZ4 Ultrasonography of Heart with Aorta, Transesophageal (ICD-10-PCS; 2016-09-28)
PROC: 07DR3ZX Extraction of Iliac Bone Marrow, Percutaneous Approach, Diagnostic (ICD-10-PCS; 2016-09-30)
DX: A41.9 Sepsis, unspecified organism (principal); J12.89 Other viral pneumonia; C85.95 Non-Hodgkin lymphoma, unspecified, lymph nodes of inguinal region and lower limb; I42.9 Cardiomyopathy, unspecified; B97.0 Adenovirus as the cause of diseases classified elsewhere; R16.1 Splenomegaly, not elsewhere classified; L08.9 Local infection of the skin and subcutaneous tissue, unspecified; B96.5 Pseudomonas (aeruginosa) (mallei) (pseudomallei) as the cause of diseases classified elsewhere; F17.210 Nicotine dependence, cigarettes, uncomplicated; I10 Essential (primary) hypertension

== ENCOUNTER 2016-10-06 14:51 | Inpatient (IN) | payer MEDICAID ==
[~2016-10-06] VITALS: Ht 185.4 cm; Wt 109.2 kg
--- NOTE | ~2016-10-06 | ECH ---
Transthoracic Echocardiography Report (TTE) Demographics Patient Name TONYA KIRAN Date of Study 10/07/2016 Patient Number [id number] Visit Number [id number] Date of 1995 Room Number 423 Accession Number [id number] Gender Male Age 21 year(s) Referring Nhi Garcia MD Button Grader Marsha Hill [facility] Physician Aaron Rock Physician Interpreting Nhi Garcia MD Woodworker Helper Physician Supervising Ordering Physician Aaron Rock MD/P Nurse Stress Towel Cabinet Repairer Conclusions Summary Limited exam to evaluate new murmur. Technically adequate exam. The estimated left ventricular ejection fraction is 60%. The left ventricle is mildly dilated . Mild to moderate left ventricular hypertrophy. There appears to be a small membranous ventricular septal defect. The left atrium is mildly dilated. Prominent Chiari network seen in the right atrium. Normal aortic valve structure and function. 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 Trivial tricuspid regurgitation by color Doppler. Trivial pulmonic valve regurgitation by color Doppler. Procedure Type of Study TTE procedure:Echo Limited SF. Procedure Date Date: 10/07/2016 Start: 02:46 Technical Quality: Adequate visualization Indications:Heart murmur. Appropriate Use Criteria: 9 Height: 73 inches Weight: 229 pounds BSA: 2.28 m Rhythm: Within normal limits HR: 76 bpm BP: 145/83 mmHg M-Mode/2D Measurements LV Diastolic Dimension: 6.21 cm LV Systolic Dimension: 4.44 cm LV Septum Diastolic: 1.02 cm LV PW Diastolic: 1.33 cm AO Root Dimension: 2.9 cm LA Dimension: 4.22 cm RV Diastolic Dimension: 3.07 cm LVOT: 2.58 cm Doppler Measurements PV Peak Velocity: 0.88 m/s PV Peak Gradient: 3.1 mmHg Findings Left Ventricle The left ventricle is mildly dilated . Mild to moderate left ventricular hypertrophy. There appears to be a small membranous ventricular septal defect. Right Ventricle Normal right ventricle structure and function. Left Atrium The left atrium is mildly dilated. Right Atrium Prominent Chiari network seen in the right atrium. Mitral Valve Normal mitral valve structure and function. Aortic Valve Normal aortic valve structure and function. 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 Tricuspid Valve Normal tricuspid valve structure and function. Trivial tricuspid regurgitation by color Doppler. Pulmonic Valve Normal pulmonic valve structure and function. Trivial pulmonic valve regurgitation by color Doppler. Pericardial Effusion Trivial pericardial effusion. Miscellaneous Visualized portions of the aortic root and ascending aorta appear normal in size. Pleural Effusion No evidence of pleural effusion. Contractility Score LV regional wall motion:(0-Non visualized 1-Normal 2-Hypokinesis 3-Akinesis 4-Dyskinesis 5-Aneurysm) Signature
[~2016-10-06 14:51] MED LIST: COREG DPS6.25 MG PO; HYZAAR 100-251 EACH PO; NORVASC DPS10 MG PO; TESSALON PERLE100 M1 PO; TYLENOL DPS325 MG PO; VANCOCIN-DPS1 GM IV; ZESTRIL DPS5 MG PO; ZOSYN 3.3753.375 GM IV; ZYLOPRIM-DPS100 MG PO
--- NOTE | 2016-10-10 08:01 | CO ---
ADMIT: 10/06/2016 RM/LOC: 423 [facility] MR#: [id number] [address] [address] TONYA KIRAN [address] [address] [place] [address] Consultation SEX: M AGE: 21 : 1995 DATE OF CONSULTATION: 10/06/2016 ATTENDING PHYSICIAN: Pranav Walker CONSULTING PHYSICIAN: Shoshana Price MD REASON FOR CONSULTATION: Creatinine of 10.5. HISTORY OF PRESENT ILLNESS: This is a complex patient who recently was hospitalized here for surgical consult and ID consultation. He had a nonhealing left inguinal groin region ulcerated area, which was diagnosed with bone marrow biopsy as non-Hodgkin lymphoma, who was hospitalized approximately 10 days ago with pneumonia, rhinovirus and assessment of this necrotic lesion. He was sent to the emergency room today from his primary care doctor, Dr. Aj Carrera, with a creatinine of 10 and a potassium of 4.0. He was to have an MRI of his heart tomorrow in [place] as concerns about possible abscess. He has had approximately 72 hours of nausea and vomiting. Here in the emergency room, his sodium is 148, potassium 4.6, BUN and creatinine of 40 and 10.5. , albumin 3, magnesium 2.1. White count 13,000, hemoglobin 17, platelet count 263. UA is hazy, protein +1. Chest x-ray shows borderline cardiomegaly. Urine is hazy. C and S is pending. Left groin on initial assessment with last hospitalization showed Pseudomonas. His echocardiogram at last hospitalization showed left ventricular ejection fraction of 55%, normal aortic valve structure and function, questionable aneurysm of right coronary cusp with questionable abscess, no atrial regurgitation, small global pericardial effusion. His bone marrow biopsy on September 30 showed new non-Hodgkin lymphoma. ASSESSMENT AND PLAN: This is admission of a 21-year-old with large necrotic wound, which has now been diagnosed as non-Hodgkin lymphoma with wound infection, nausea and vomiting episode which lasted greater than 72 hours; acute renal failure, on an ARB, ADI inhibitor, as well as elevated vancomycin level of 100 with evidence of dehydration. Questionable abscess of right coronary cusp, he is to have an MRI in [place] tomorrow to rule out abscess. If it is negative, his vancomycin must be stopped. We will ask Cardiology to see, to see if he can get an MRI here or needs a ROSANNE and further assessment. I will follow him for Dr. Castillo. We will ask Dr. Padron to see in the morning. Shoshana Price MD/ kimberley JOB #: [id number] CC: Praanv Walker, Attending Physician Aj Carrera, Family Physician
--- NOTE | 2016-10-16 01:14 | ER ---
ADMIT: 10/06/2016 RM/LOC: 423 [facility] MR#: [id number] [address] [address] TONYA KIRAN [address]DM L[place] CARCAMO [address] Emergency Room Report SEX: M AGE: 21 : 1995 DATE: 10/06/2016 ADDENDUM: See T-sheet for complete H and P. A 21-year-old male with a recent admission to the hospital for approximately 1 week with newly diagnosed high-grade non-Hodgkin's lymphoma and recent bilateral pneumonia, sepsis, presents back to the ER today with concerns of acute kidney injury. The patient was discharged from the hospital 5 days ago on IV vancomycin and Zosyn for the aforementioned infections. Apparently, he had some labs drawn from the home health nurse, which showed he had an elevated creatinine of 10 which was related to his primary care doctor in [place], and he was therefore sent to our facility. The patient states he has actually been feeling better for the past couple of days but has had some looser stools in the past couple of days and some intermittent nausea with vomiting over the past couple of days. He states he is still producing urine, is not having any chest pain or shortness of breath, and the cough he had previously seems better. He does still have a nonhealing wound in his left inguinal region which is being followed by [facility] Services, and he is currently on antibiotics for it. We did some lab work while in the Emergency Department and it shows that he has white count today of 13.0 with an ANC of 10.7, with a BUN of 40, creatinine of 10.5, and anion gap of 27, lactic acid of 1.0, CK of 22. His urinalysis showed 11 white blood cells, 11 red blood cells, and it was hazy. At this time, we will be admitting the patient to [facility] for acute renal failure likely secondary to his vancomycin. I did speak with Dr. Walker, who is on for city call, who graciously agrees to admit the patient to his service for further management. The patient is admitted in unchanged condition. Kalen Sanchez MD/ kimberley JOB #: [id number] CC: Pranav Walker MD, Attending Physician Aj Carrera MD, Family Physician
--- NOTE | 2016-10-17 19:48 | HP ---
ADMIT: 10/06/2016 RM/LOC: 423 [facility] MR#: [id number] [address] [address] MAG[place] [address] [address] [address] History and Physical SEX: M AGE: 21 : 1995 DATE OF SERVICE: CHIEF COMPLAINT: Elevated creatinine, nausea, and vomiting. HISTORY OF PRESENT ILLNESS: The patient was recently hospitalized here at [place] for bilateral community-acquired pneumonia and left necrotic inguinal wound and sepsis. During this hospitalization, the patient underwent a debridement of the wound, and he is also diagnosed with non-Hodgkin lymphoma. The patient states that he had this large mass in his left groin for at least 2 years; however, it gotten worse over the last few months and used a black salve that one of his buddies gave him and that caused the area to become very black and then fall out. Ever since then, he had been dealing with this open wound. He does not have any insurance or any means to get health care, so he was trying to manage it at home, that is when he was brought into the hospital. Last time, the patient was sent out on vancomycin and Zosyn as well as followup appointments with ID, General Surgery, and Cardiology for possible endocarditis or aortic cusp aneurysm. The patient had labs drawn earlier today while in [place], and his creatinine was found to be greater than 10. The patient was having some nausea and vomiting, so the patient was transferred back to [place], where in the ER he had further lab work and that showed a creatinine of 10.5. He is otherwise feeling fine today besides the nausea, has no other concerns. REVIEW OF SYSTEMS: CONSTITUTIONAL: Denies headache, fever, or chills. HEENT: No sore throat. No increased lymph node size. No dysphagia. No sinus pain. HEART: The patient says he has a some type of murmur or lesion on his valve. He denies chest pain or palpitations. Upon further review of the patient's chart, there was concern for possible aortic cusp abscess. LUNGS: No chest pain. No cough. No shortness of breath. ABDOMEN: Positive for nausea and vomiting. He does have some mild abdominal pain. Otherwise, normal bowel movements. EXTREMITIES: He has a large open wound on his left groin. Otherwise, no edema. URINARY: He is continuing to urinate. Today, he has urinated at least once. PAST MEDICAL HISTORY: Prior to his most recent admission, the patient says he is fairly healthy, but most recently, he was diagnosed with the non-Hodgkin lymphoma and hypertension. He says his necrotic wound had Pseudomonas infection, and he also had the recent pneumonia. PAST SURGICAL HISTORY: Includes I and D of the left groin lesion. SOCIAL HISTORY: He says he is unemployed largely due to the pain in his groin. 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 He does endorse tobacco use with an occasional cigarettes, and at times, he does drink alcohol, and when he does drink, he drinks a lot, but he says he does not drink daily, usually on weekends. He admits to a history of IV drug use, and he also is sexually active. ADMIT: 10/06/2016 RM/LOC: 423 [facility] MR#: [id number] [address] [place] [id number] TONYA KIRAN [address] [place] [address] History and Physical SEX: M AGE: 21 : 1995 FAMILY HISTORY: Fairly noncontributory. He thinks mostly healthy, but he does mention his grandfather had skin cancer in older age. PHYSICAL EXAMINATION: GENERAL: No acute distress. He is alert and oriented x3. Very pleasant. HEENT: Normocephalic and atraumatic. Moist mucous membranes. Extraocular muscles are intact. Pupils are equal, round, and reactive. I do not appreciate any enlarged submandibular or clavicular nodes, nor do I have noticed any enlarged preauricular or postauricular nodes. HEART: I feel is regular rate and rhythm. I do not appreciate a murmur at this time, but again, there is a concern for possible abscess on his aortic valve. LUNGS: Clear to auscultation bilaterally. Normal effort. No wheezing or rhonchi. ABDOMEN: Soft and nontender. Positive bowel sounds. EXTREMITIES: He does have a large left groin wound of at least 2 to 3 inches wide. It is pink in color with muscle granulation tissue, but also some white around the edges. Lower extremities show no signs of edema. He has 2+ pulses bilaterally in his dorsalis pedis and tibialis. NEUROLOGIC: Cranial nerves II through XII are grossly intact. LAB WORKUP: CBC; white blood cell count was 13.0 with an ANC of 10.7, hemoglobin was normal at 14.5, and platelets were normal at 263. Lactic acid was normal at 1. BMP was normal except for the elevated creatinine at 10.5, anion gap of 27, and his BUN was 40. ASSESSMENT AND PLAN: 1. Acute renal failure with a creatinine of 10.5 secondary to nephrotoxic agents, most likely the vancomycin that was found to have a level at least of 100. 2. Non-Hodgkin lymphoma. 3. Large inguinal wound with growth of Pseudomonas. 4. Hypertension. ADMIT: 10/06/2016 RM/LOC: 423 [facility] MR#: [id number] [address] [address] TONYA KIRAN [address] [address], [place] [address] History and Physical SEX: M AGE: 21 : 1995 5. Possible abnormal aortic cuspid valve. At this point in time, the patient's other electrolytes are stable, so we will continue to keep the patient hydrated with normal saline. We will continue to monitor electrolytes and creatinine. We will stop his nephrotoxic medications at this time. We will consult Nephrology, Infectious Disease, and Oncology. The patient's wound is most likely just secondary to the patient's cancer. He is supposed to be following up with [facility] within the next week or so and also is supposed to get an MRI of his heart to further monitor these valves. We will see what we can get it done here during this hospitalization. Appreciate Infectious Disease and Nephrology's help as well as Oncology's. We will continue to get daily CBCs, BMPs, and vancomycin levels and hold off on antibiotics at this time. Maria Guadalupe Laird MD Resident / Pranav Walker MD / kimberley JOB #: [id number] CC: Pranav Walker, Attending Physician Aj Carrera, Family Physician
--- NOTE | 2016-10-18 10:38 | CO ---
ADMIT: 10/06/2016 RM/LOC: 423 [facility] MR#: [id number] [address] [address] MAGNO TONYA Cisse [address] [address] [place] [address] Consultation SEX: M AGE: 21 : 1995 DATE OF CONSULTATION: 10/07/2016 ATTENDING PHYSICIAN: Pranav Walker CONSULTING PHYSICIAN: Farhat Padron MD REASON FOR CONSULTATION: Acute kidney injury. HISTORY OF PRESENT ILLNESS: The patient is a 21-year-old gentleman, who was recently hospitalized for bilateral community-acquired pneumonia and left nephrotic inguinal wound. He had a debridement of his inguinal wound and was discharged home on antibiotics. Of note, during that hospitalization, he was also diagnosed with non-Hodgkin's lymphoma. The patient earlier this week on Monday, started having nausea as well as vomiting. He has sought care by his primary care physician Dr. Aj Carrera in [place]. He was taken off some of his blood pressure medications including losartan at that time. He had labs checked and his creatinine was elevated up to 10. His vancomycin level was also greater than 100. He was sent over to [facility], he feels weak at this time. He has not had an appetite. He thinks that his nausea is somewhat better. He reports decreasing urine output but no dysuria. Denies any diarrhea or constipation. Denies any fevers, chills, or rigors. Denies any skin rash or [id number] medications. PAST MEDICAL HISTORY: 1. Non-Hodgkin's lymphoma. 2. Hypertension. 3. Community-acquired pneumonia. 4. Pseudomonas abscess. ALLERGIES: NO KNOWN DRUG ALLERGIES. SOCIAL HISTORY: He lives in [place]. He is unemployed. Lives with his parents. FAMILY HISTORY: No family history of chronic kidney failure or renal replacement therapy. MEDICATIONS: Reviewed in the chart. ALLERGIES: NO KNOWN DRUG ALLERGIES. PHYSICAL EXAMINATION: VITAL SIGNS: Temperature 98.6 Fahrenheit, pulse 79, blood pressure 145/83, saturating 96% on room air. Urine output has been around 850 mL. GENERAL: He is comfortable in no acute distress. HEENT: Head is nontraumatic and normocephalic. Extraocular movements are intact. Dry mucosa. CHEST: Clear to auscultation. CVS: Regular rhythm, he has a systolic murmur. ABDOMEN: Soft and nontender. ADMIT: 10/06/2016 RM/LOC: 423 [facility] MR#: [id number] [address] [address] TONYA KIRAN [address] [place] [address] Consultation SEX: M AGE: 21 : 1995 EXTREMITIES: No edema. LABORATORY DATA: Reviewed. BMP with sodium 140, potassium 4.2, creatinine 10.5. Hemoglobin 13.5, vancomycin random level was 150, calcium 8.0, albumin 2.7. Urinalysis 1+ protein, negative blood, negative leukocyte esterase. ASSESSMENT AND PLAN: Acute kidney injury-secondary to nephrotoxic acute tubular necrosis. This is likely secondary to vancomycin nephrotoxicity as well as volume depletion and renin-angiotensin blockade. He is noted to be hypophosphatemic and this could either be secondary to his renal failure or tumor lysis syndrome that is less likely. There is no emergent indication for renal replacement therapy, and we will pursue supportive measures for the time being. He may need renal replacement therapy in the future, and he understands. His son is agreeable to this if needed. Thank you for this consultation. Please do not hesitate to contact me if you have any questions. Farhat Padron MD/ kimberley JOB #: [id number] CC: Pranav Walker, Attending Physician Aj Carrera, Family Physician
--- NOTE | 2016-10-20 14:18 | CO ---
ADMIT: 10/06/2016 RM/LOC: 423 [facility] MR#: [id number] [address] [address] EDUARDO KIRAN [address] [address] [place] [address] Consultation SEX: M AGE: 21 : 1995 DATE OF CONSULTATION: 10/14/2016 ATTENDING PHYSICIAN: Pranav Walker CONSULTING PHYSICIAN: Ynes Bagley APRN TIME IN: 0910 hours. TIME OUT: 0955 hours. REASON FOR CONSULTATION: Supportive care consultation was requested by Dr. Walker for discussion of goals for care. HISTORY OF PRESENT ILLNESS: Eduardo is a 21-year-old, male, who was hospitalized earlier this month from a 09/23 to 10/01 with pneumonia sepsis and nonhealing left inguinal wound which had been present for a few months. Wound cultures at that time did grow Pseudomonas, and eventually he underwent debridement with pathology, and was unfortunately found to have non-Hodgkin's lymphoma. During his stay an echocardiogram was done that showed concern for aortic abscess and the plan was for him to follow up with Cardiology as an outpatient for MRI and evaluation of this. He eventually discharged back home with IV antibiotics. He was at the [facility] on 10/06 for labs, and at that time his creatinine was found to be over 10. He was transferred to [place] for further evaluation and care. Hemodialysis was started. At this point, we are taking things a day at a time with his dialysis. There are no plans for dialysis today. Doppler of the left lower extremity is positive for nonocclusive DVT. Oncology has been following the patient and has had extensive discussions with the patient regarding chemotherapy in the treatment of his non-Hodgkin's lymphoma. At this point, the patient is not sure about doing chemotherapy. The plan is for him to follow up with Cardiology again as an outpatient for evaluation of the potential aortic abscess. Due to his complexities, supportive care consultation was requested to discuss goals for care. In terms of advanced directives, the patient does not have any advanced directives on file. He is a full code. In terms of medical decision making, the patient's father Amish Kiran, whose phone# [phone] is the patient's next of kin medical decision maker. Symptomatically, the patient denies any complaints. He is slightly fatigued. He denies pain or other complaints. PAST MEDICAL HISTORY: 1. Non-Hodgkin's lymphoma. 2. Hypertension. 3. Necrotic wound growing Pseudomonas in the left groin. 4. Recent pneumonia. SURGICAL HISTORY: ADMIT: 10/06/2016 RM/LOC: 423 [facility] MR#: [id number] [address] [place] [address] EDUARDO KIRAN [address] [place], [place] [id number] Consultation SEX: M AGE: 21 : 1995 1. I and D of the left groin lesion. 2. Dialysis catheter placement. ALLERGIES: THE PATIENT HAS NO KNOWN MEDICATION ALLERGIES. CURRENT MEDICATIONS: Please see the patient's MAR for specific routes and dosages. His current medications are as follows. 1. Heparin drip. 2. Zosyn. 3. Maalox. 4. Colace. 5. Phenergan. 6. Coreg. 7. Zofran. 8. Tylenol. 9. Nitrostat. SOCIAL HISTORY: The patient is single. He is unemployed, but states that he "jumped around a lot" prior to becoming sick. 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 He does have a smoking and chewing tobacco history, but is not using either currently. He drinks alcohol, and he states that when he does drink he drinks quite a bit on the weekends up to a case of beer a day. He denies illicit drug use with me; however, his records do indicate that he has a history of this. He is sexually active per the chart as well. FAMILY HISTORY: His grandfather had history of skin cancer in older age. FUNCTION REVIEW: Prior to this stay, he was at home. He could ambulate. He was independent. His palliative performance scale prior to admission was around an 80%. Currently, he is tired. He is pretty much doing his ADLs independently. His current palliative performance scale is around 70%. REVIEW OF SYSTEMS: A 10-point review of systems was completed and other than those pertinent positives and negatives mentioned in the HPI, it is negative. PHYSICAL EXAMINATION: GENERAL: The patient is examined in the bed. He is in no acute distress. VITAL SIGNS: Temperature 99.4, pulse 94, respirations 15, blood pressure 160/91, oxygen 96% on room air. HEENT: Head is normocephalic. Pupils are 3 mm bilaterally and brisk. Oral mucosa pink and moist with fair dentition. NECK: Supple. RESPIRATORY: Respirations are equal, nonlabored at rest. LUNGS: Clear. CARDIOVASCULAR: Rate and rhythm regular without murmurs, rubs, or gallops. 2+ bilateral lower extremity edema noted. GASTROINTESTINAL: Soft, nontender. Bowel sounds are positive. MUSCULOSKELETAL: Generalized slight weakness, however, no major joint ADMIT: 10/06/2016 RM/LOC: 423 [facility] MR#: [id number] [address] [place] [address] EDUARDO KIRAN [address] [place] [address] Consultation SEX: M AGE: 21 : 1995 deformities. INTEGUMENTARY: He does have a left groin wound, however this is not examined. NEUROLOGIC: Alert and oriented x3. He will follow commands. PSYCHIATRIC: Calm. Cooperative. He does have a tendency to minimize the severity of his illnesses. DIAGNOSTIC DATA: Sodium 143, potassium 3.6, BUN 21, creatinine 5.5, total protein 5.5, albumin 2.3. WBC 6.6, hemoglobin 11.8, hematocrit 35.9, and platelets are 165. IMPRESSION: 1. Physical debility. 2. Moderate protein-calorie malnutrition. 3. Fatigue. 4. Difficulty coping. 5. Acute kidney injury, requiring hemodialysis. 6. Left deep vein thrombosis. 7. Non-Hodgkin's lymphoma. 8. Left groin wound growing Pseudomonas. 9. Questionable aortic cusp abscess. 10.Palliative care. 11.The patient is a full code. PLAN OF TREATMENT: 1. I was able to meet with the patient at the bedside. I introduced myself and what my role is in his care. We reviewed his overall status and goals for the time ahead. He states that his goal in the immediate time ahead is to focus on his kidney and heart function and make decisions from there. He states that he is not even thinking about chemo or treatment for cancer. He does verbalize understanding that he has cancer, but states that chemo is "just the way for people to make money." He is not convinced that chemotherapy would benefit him. He is not convinced that he would without it. I asked him what his plans are to treat the cancer if he does not pursue chemotherapy and he states "there are other ways," and that he is not thinking about the cancer right now. He states he has time and that "he will figure it out." I did emphasize the serious nature of his illness and the fact that it could take his life if left untreated. I emphasized the role that chemotherapy has in treatment and care for this disease. He verbalizes understanding of this, but again remains skeptical that this is actually the case. I did encourage him to continue to talk with his other providers and also Oncology in the time ahead. 2. In terms of code status, he is a full code. ADMIT: 10/06/2016 RM/LOC: 423 [facility] MR#: [id number] 2620 [facility] [address] [place] [id number] EDUARDO KIRAN [address] [address] [place] [address] Consultation SEX: M AGE: 21 : 1995 3. In terms of advanced directives, he has not completed any advanced directives. Pending his status, when I follow up over the weekend, we could potentially assist with POLST form completion if this is something he is wanting to do. 4. Overall the patient does seem to have a hard time grasping the serious nature of his illness. Much support was given to him. We will continue to follow along in the care of this patient. We would like to thank Dr. Walker for the invitation to participate in this patient's care. Total consultation time was 45 minutes from 0910 hours to 0955 hours, with 25 minutes from 0915 hours to 0940 hours spent [id number] with the patient discussing goals for care and providing counseling and support. Ynes Bagley APRN/ kimberley JOB #: [id number] CC: Pranav Walker, Attending Physician Aj Carrera, Family Physician
[2016-10-20] MEDS ORDERED: COREG DPS6.25 MG PO (19:08)
[2016-10-20] MEDS ORDERED: TYLENOL DPS325 MG PO (19:08)
[2016-10-20] MEDS ORDERED: ASCORBIC ACID500 MG PO (19:09)
[2016-10-20] MEDS ORDERED: PEPCID DPS20 MG PO (19:09)
[2016-10-20] MEDS ORDERED: NORVASC5 MG PO (19:09)
[2016-10-20] MEDS ORDERED: VIBRAMYCIN-DPS100 M2 PO (19:10)
[2016-10-20] MEDS ORDERED: CIPRO DPS500 MG PO (19:14)
[2016-10-20] MEDS ORDERED: LOVENOX DP30 MG/0.3 SQ (19:16)
--- NOTE | 2016-10-21 10:58 | CO ---
ADMIT: 10/06/2016 RM/LOC: 423 [facility] MR#: [id number] [address] [address] TONYA KIRAN [address] [address] [place] [address] Consultation SEX: M AGE: 21 : 1995 DATE OF CONSULTATION: 10/07/2016 ATTENDING PHYSICIAN: Pranav Walker CONSULTING PHYSICIAN: Chrystal Gaines MD REASON FOR CONSULTATION: Non-Hodgkin's lymphoma. HISTORY AND PHYSICAL: Mr. 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 His Vanco trough was more than 100 and his creatinine was around 11. Therefore, he got admitted. He is seen by travel specialist. He still makes urine. He denies any fever. He has constant nausea and vomiting. He was supposed to see a lymphoma export at [facility], but he could not go due to the constant nausea no vomiting. No abdominal pain. No fever. PAST MEDICAL HISTORY: None. ALLERGIES: NO KNOWN DRUG ALLERGIES. SOCIAL HISTORY: He is not a smoker. Not a drinker. He does not use any illicit drugs. FAMILY HISTORY: Significant for diabetes and high blood pressure. MEDICATIONS: Please review the medication list. REVIEW OF SYSTEMS: GENERAL: Not in acute distress. RESPIRATORY: No shortness of breath. CARDIOVASCULAR: No chest pain. NUTRITION: Adequate. ENDOCRINOLOGY: No polyuria. No polydipsia. GENITOURINARY: No urgency. No frequency. INFECTION: No fever. SKIN: No rash. MUSCULOSKELETAL: No pain. NEUROLOGIC: Awake, alert, oriented. GASTROINTESTINAL: Nausea and vomiting positive but no diarrhea. PHYSICAL EXAMINATION: VITAL SIGNS: Temperature 98.6, pulse 79, respirations 18, blood pressure 145/82. HEENT: Normocephalic, atraumatic. LUNGS: Clear. HEART: S1-S2 heard. Regular rate and rhythm. ABDOMEN: Soft, nontender, nondistended. Positive bowel sounds. EXTREMITIES: No edema. ADMIT: 10/06/2016 RM/LOC: 423 [facility] MR#: [id number] [address] [address] TONYA KIRAN [address] [address] [place] [id number] Consultation SEX: M AGE: 21 : 1995 NEUROLOGICAL: Awake, alert, and oriented x3. No focal neurological deficit. SKIN: No rash. LYMPHATICS: There are left inguinal necrotic ulcers from the lymph node which was there from last time and it is positive for non-Hodgkin's lymphoma LABORATORY DATA: WBC 12.1, hemoglobin 13.5, and platelets 276. His creatinine is 10.5. Normal LFTs. His calcium is 9. IMPRESSION AND RECOMMENDATIONS: Mr. 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 1. 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 He was supposed to see the lymphoma expert at [facility], but could not go there because of the extreme nausea and vomiting. I will discuss with the pathology and get the final diagnosis pretty soon. I think by like this week, we will have the final diagnosis. I have discussed with the patient about the need of chemotherapy and I also talked to him about the need of Port-A-Cath before he leaves the hospital for possible treatment. At this point of time, he is little reluctant to go into treatment because of his kidney failure. He wants to fix his kidney first. I have told the patient to discuss with his father and with his mother and sister and get me the decision for further treatment. I told him that this is a treatable disease, curable disease, therefore I will strongly suggest him to receive chemotherapy. 2. Acute kidney failure. Nephrology is on board. He will probably need temporary dialysis. It is because of his vancomycin. I will check LDH and uric acid just to make sure that it is not from lymphoma. Thank you for the referral and the opportunity in taking care of the patient. I have answered all his questions and concerns very thoroughly and in detail. Chrystal Gaines MD/ kimberley JOB #: [id number] CC: Pranav Walker, Attending Physician Aj Carrera, Family Physician
--- NOTE | 2016-11-15 07:03 | CO ---
ADMIT: 10/06/2016 RM/LOC: 423 [facility] MR#: [id number] [address] [address] MAG[place]ONYA [address] [address] [place] [address] Consultation SEX: M AGE: 21 : 1995 DATE OF CONSULTATION: 10/16/2016 ATTENDING PHYSICIAN: Pranav Walker CONSULTING PHYSICIAN: Boris Muñoz MD CHIEF COMPLAINT: Nonhealing and bleeding left groin wound. HISTORY OF PRESENT ILLNESS: This is a 21-year-old male patient, who has a pretty complex history. He had presented with a necrotic left groin wound. He has had this mass present there. Not exactly sure if he thought it was an infection or just a lump or mass. He was trying to treat homeopathically, and so he had been using some Black Salve that he obtained somewhere and applying this to his left groin wound, trying to basically debride this wound or kill the mass that way. This left him with a large cratered out open area as a causticization I guess and had basically destroyed all the skin and normal tissue around it. He presented to Dr. Mckeon because of this necrotic wound. Dr. Mckeon debrided it and sent some of the tissue for pathology, which ultimately revealed this to be a lymphoma. The patient has been exploring options for treatment and considered chemotherapy. He has been treated with vancomycin because of this wound, but came back in and last week with DVT, renal failure, so he was started on heparin drip, he had a dialysis line placed and received three rounds of dialysis last week. Last night, then he started bleeding from this groin wound, Dr. Aceves came in, and used Silver Nitrate sticks to control that bleeding and also held his heparin drip and just restarted that again this morning. The patient is resistant to starting chemotherapy. He says that is going to kill his immune system and that is the only way that his kidneys are going to get better. It sounds like he needs to have a cardiac MRI done also according to the notes, so again a very complex circumstances right now. The patient also made some comment that his doctor back home wanted him to have a scan of his groin for concern that this tumor is pushing or eroding through into the blood vessels. I explained to the patient that even if that were the case, which I do not think it is, if that were the case, it is really nothing to do surgically with that. I think is his best option to treat this is chemotherapy to try to shrink in and treat lymphoma that he has. But again, he is not really interested in trying that right now. PHYSICAL EXAMINATION: On exam, his left groin wound is obviously a large open wound about 10 cm in diameter with granulation tissue. There is no active bleeding at this time. The wound looks clean. There is no necrotic tissue at all, but has heaped up edges in a fleshy granulation type base. ASSESSMENT: Lymphoma of left groin with open wound, recent deep vein thrombosis, renal failure, etc. ADMIT: 10/06/2016 RM/LOC: 423 [facility] MR#: [id number] [address] [place] [id number] TONYA KIRAN [address] [place] [address] Consultation SEX: M AGE: 21 : 1995 PLAN: He is unfortunately in a pretty bad spot with this. I do not think that there is anything do surgically with his groin wound. I would just recommend continue with local wound care. I do think the only way to really get that ever heal up is to treat with chemo to treat him lymphoma, but given his renal failure and DVT, I do not know when he can start on his chemo. He did start back his heparin today, which I think is reasonable, but he may bleed. Again, there is really not much to offer him from a surgical standpoint other than just the local wound care. He may ultimately benefit from IVC filter, but if he is going to need an MRI that may not be available or may not be the best thing to do right now either. So, he is thinking about his options and will decide ultimately what he wants to do regarding the chemo. Boris Muñoz MD/ kimberley JOB #: [id number] CC: Pranav Walker, Attending Physician Aj Carrera, Family Physician
--- NOTE | 2016-11-29 06:55 | DS ---
ADMIT: 10/06/2016 RM/LOC: 423 [facility] MR#: [id number] [address] [facility] [address] [place] [address] MAG[place]ONYA [address] [place] [address] General Discharge Summary SEX: M AGE: 21 : 1995 ADMISSION DATE: 10/06/2016 DISCHARGE DATE: 10/19/2016 FINAL DIAGNOSES: 1. Acute renal failure secondary to vancomycin toxicity. 2. Hypertension. 3. Non-Hodgkin's lymphoma. 4. Left groin wound, nonhealing. 5. Left nonobstructive deep vein thrombosis in left lower extremity. 6. 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 HISTORY OF PRESENT ILLNESS: The patient is a 21-year-old male, who had actually just been in the hospital at [facility] the week prior where he was diagnosed with possible lymphoma, suspicious for non-Hodgkin's lymphoma. He has also had a bilateral community-acquired pneumonia and then he had left necrotic inguinal wound meeting sepsis criteria. Due to that wound and further abnormalities, they diagnosed the patient with non-Hodgkin lymphoma. The patient came back to the ER as the patient is having severe nausea and vomiting. Lab work at [place], done by his home health care nurse showed a creatinine of 10.5, an elevated vanc level. The patient got to the ER in [place] with continuous nausea and vomiting. He had no pain. The patient's vanc level was greater than 100. Again, creatinine was 10.5 on evaluation. The patient was on outpatient IV antibiotics with vancomycin and Zosyn for this necrotic wound at his left groin and is receiving home health care and home IV medications. The patient was supposed to go to the Hematology Oncology Team at [facility], but he had not yet made it. Also was supposed to get a cardiac MRI as the patient had a new murmur. There was echo at previous hospitalization that was suspicious for possible abscess or aneurysm. HOSPITAL COURSE: 1. Non-Hodgkin's lymphoma. Hematology Oncology was consulted for the management and therapy of the patient has non-Hodgkin lymphoma. However, the patient was very hesitant about starting treatment. He felt that some of the reasons why he should not start chemotherapy at this time was one he felt like it was just another way to make money off of it. He was concerned for infertility. He is afraid of feeling sick all the time. He is also more concerned with his kidney failure as well as his heart problems at that time and he wanted to focus on that. It was explained multiple times the importance of starting chemotherapy that he will most likely if he did not start treatment. However, the patient still remained very hesitant to start any therapy at this time. So no chemo was started. The patient will follow up with Heme-Onc as an outpatient to discuss the plan further and he will also be possibly sent to [facility] for further evaluation as well. 2. Acute renal failure. Again, the patient had a creatinine of 10.5 at the time of admission, this is due to vancomycin toxicity as his Vanco level is greater than 100. Vancomycin was stopped and IV fluid was started. However, his renal failure continued and then ultimately, the patient was started on temporary hemodialysis. Procedure included IVC hemodialysis ADMIT: 10/06/2016 RM/LOC: 423 [facility] MR#: [id number] [address] [address] TONYA KIRAN [address] [place] [address] General Discharge Summary SEX: M AGE: 21 : 1995 catheter placement to internal jugular. Nephrology had been consulted and helped to manage his acute renal failure and his dialysis. At the time of discharge, his creatinine was 3.1. He is to follow up with Dr. Padron in a week with followup BMP on Mondays. 3. Wound. The patient's left inguinal area had large wound. This has been nonhealing for multiple months. He stated that back in June put on Black Salve to see whether or not the area was cancer. He had noticed a large bump there for at least two years and the Black Salve did work and caused the tissue to necrose, however never did heal. At his last admission, he had the wound debrided and Wound Care was consulted as well as ID. That was when the patient is started on vancomycin and Zosyn IV and sent home on IV medication. At that time, the wound did grow out Pseudomonas. Since returning to the hospital, the vancomycin was obviously stopped. The patient was continued on Zosyn. He did continue to have some fevers and other antibiotic was started, specifically clindamycin. Infectious Disease followed throughout the stay and at time of discharge, switched the patient to doxycycline and ciprofloxacin for 3 weeks. 4. Murmur/coronary cusp abscess and aneurysm. Again, the patient has been told previously that he needed to get a cardiac MRI to further evaluate the new murmur as well as a possible aneurysm or abscess. He was not able to do this as he was hospitalized back in our hospital. Cardiology was consulted and they helped to manage both his high blood pressure and this murmur and possible aneurysm. Another echo was done, which showed an EF of 60%. LV was mildly dilated. He did have a small membranous ventriculoseptal defect. 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 A right coronary cusp abscess would flow into the right ventricle. Again this is questionable whether or not this was an abscess or aneurysm. The patient is scheduled for a cardiac MRI as an outpatient. 5. The patient has some lower extremity swelling bilaterally, but he also has some pain as well on the left. Ultrasound Dopplers were done. Right leg was clear for any DVT or clot, over his left leg, the same with the inguinal wound, did have a [id number] nonocclusive thrombus in the mid- to-distal femoral vein, again nonobstructing. So, the patient was started on heparin drip and then transitioned to Lovenox for the next six months for treatment of the DVT. DVT is more than likely related to the patient's cancer and also possibly due to recent hospitalizations, which meant that the patient was off of his feet more often. Consults during this hospitalization included Nephrology, Cardiology, Hematology Oncology, Infectious Disease, Surgery, and Palliative Care. Palliative/Supportive Care was enlisted to help with the patient's decision making and goals of care. Again, the patient was full code, but he did not at this time want to pursue a therapy for his cancer. The ADMIT: 10/06/2016 RM/LOC: 423 [facility] MR#: [id number] [address] [address] TONYA KIRAN [address] [place] [address] General Discharge Summary SEX: M AGE: 21 : 1995 patient continued to stabilize over the next week or so. His creatinine improved. The patient was eventually sent back to home with home health care. MEDICATIONS AT TIME OF DISCHARGE: Doxycycline 100 mg p.o. b.i.d. for 3 weeks, ciprofloxacin 750 mg p.o. daily for 3 weeks, Lovenox 1 mg/kg subcu daily for six months, Coreg 6.25 mg b.i.d., Norvasc 5 mg daily, Pepcid 20 mg daily, and vitamin D b.i.d. OTHER DISCHARGE ORDERS: Follow up with his PCP at [facility] in 1 week. He is to stay on a renal diet. CBC, BMP, magnesium at followup visit with PCP and cardiac MRI in [place] as well as followup with Heme/Oncology. Maria Guadalupe Laird MD Resident / Pranav Walker MD / modl JOB #: [id number] CC: Pranav Walker MD, Attending Physician Aj Carrera MD, Family Physician
== END 2016-10-19 17:10 | disposition home health service (06) | DRG 683 ==
LOC: ER 14:51 → 4PCU 19:15
PROVIDERS: ADMIT Family Medicine
PROC: B543ZZA Ultrasonography of Right Jugular Veins, Guidance (ICD-10-PCS; principal; 2016-10-10)
PROC: 5A1D60Z (ICD-10-PCS; principal; 2016-10-10)
PROC: 02HV33Z Insertion of Infusion Device into Superior Vena Cava, Percutaneous Approach (ICD-10-PCS; principal; 2016-10-10)
PROC: B518ZZA Fluoroscopy of Superior Vena Cava, Guidance (ICD-10-PCS; principal; 2016-10-10)
DX: N17.0 Acute kidney failure with tubular necrosis (principal); I82.412 Acute embolism and thrombosis of left femoral vein; C85.95 Non-Hodgkin lymphoma, unspecified, lymph nodes of inguinal region and lower limb; I42.9 Cardiomyopathy, unspecified; E44.0 Moderate protein-calorie malnutrition; E83.39 Other disorders of phosphorus metabolism; B96.5 Pseudomonas (aeruginosa) (mallei) (pseudomallei) as the cause of diseases classified elsewhere; T36.8X5A Adverse effect of other systemic antibiotics, initial encounter; E86.0 Dehydration; L08.9 Local infection of the skin and subcutaneous tissue, unspecified; I10 Essential (primary) hypertension; F17.210 Nicotine dependence, cigarettes, uncomplicated; I51.89 Other ill-defined heart diseases; R23.3 Spontaneous ecchymoses